=== PATIENT | female | born 2000 | race Caucasian/White ===

== ENCOUNTER 2020-12-16 19:40 | Observation (INO) ==
[2020-12-16 20:09] LABS: Bacteria,Urine Few per hpf (None-Few); Bilirubin,Urine Negative (Negative); Blood,Urine Negative (Negative); Clarity,Urine Turbid (Clear); Color,Urine Light-Yellow (Yellow); Glucose,Urine (UA) Normal (Normal); Ketones,Urine Negative (Negative); Leukocyte Esterase,Urine Negative (Negative); Mucus,Urine Few per lpf (None-Few); Nitrite,Urine Negative (Negative); Protein,Urine Negative (Neg-Trace); RBC,Urine 0-3 per hpf (0-3); Specific Gravity,Urine 1.014 (1.010-1.025); Urobilinogen,Urine Normal (Normal)
[2020-12-16] MEDS ORDERED: Ringers Solution, Lactated 1,000 ML ONE ×2 (20:22→22:50)
[2020-12-16 20:45] LABS: Basophils % 0.3 %; Eosinophils # 0.1 K/mcL (0.0-0.6); Eosinophils % 1.3 %; Hematocrit 29.3 % (35.3-44.9); Hemoglobin 9.9 g/dL (11.5-15.4); Immature Granulocytes % 0.7 % (0-4); Lymphocytes # 2.2 K/mcL (0.6-4.6); Lymphocytes % 21.5 %; Mean Corpuscular HGB Conc 33.8 g/dL (31.6-35.5); Mean Corpuscular Hemoglobin 31.2 pg (28.0-33.3); Mean Corpuscular Volume 92.4 fL (83.0-100.0); Mean Platelet Volume 8.9 fL (9.4-12.4); Monocytes # 0.8 K/mcL (0.0-1.3); Monocytes % 8.2 %; Platelet Count 261 K/mcL (140-400); Red Blood Count 3.17 M/mcL (3.82-4.97); Red Cell Distribution Width 12.1 % (11.5-14.5); White Blood Count 10.3 K/mcL (4.3-11.1)
[2020-12-16 20:56] LABS: Prothrombin Time 11.1 Seconds (9.4-12.1)
[2020-12-16 20:58] LABS: Activated Partial Thrombo Time 25.3 Seconds (26.0-36.0)
[2020-12-16 21:10] LABS: Candida DNA Not Detected (Not Detect); Gardnerella DNA Not Detected (Not Detect); Trichomonas DNA Not Detected (Not Detect)
[2020-12-16] MEDS ORDERED: NIFEdipine Immed Rel 10 MG CAPSULE PO ONE (21:21)
[2020-12-16] MEDS ORDERED: Betamethasone Acet/SodPhos 30 MG/5 ML VIAL IM SCH (21:30)
[2020-12-16] MEDS ORDERED: *HR* Nalbuphine 10 MG/ML AMPUL ONE (22:48)
[2020-12-16] MEDS: *HR* Nalbuphine 10 MG/ML AMPUL IV PRN (22:52)
[2020-12-17] MEDS ORDERED: hydrOXYzine pamoate 25 MG CAPSULE PO PRN (03:15)
[2020-12-17] MEDS: *HR* Nalbuphine 10 MG/ML AMPUL IV PRN (04:32)
[2020-12-17] MEDS: Ringers Solution, Lactated 1,000 ML IVC SCH ×2 (04:34→09:09)
== END 2020-12-17 10:50 | disposition home or self-care (01) ==
LOC: 1NENULAB
PROVIDERS: ADMIT Obstetrics & Gynecology; ATTEND Obstetrics & Gynecology

== ENCOUNTER 2020-12-17 21:24 | Observation (INO) ==
[2020-12-17] MEDS ORDERED: Betamethasone Acet/SodPhos 30 MG/5 ML VIAL IM SCH (21:45)
== END 2020-12-17 22:50 | disposition home or self-care (01) ==
LOC: 1NENULAB
PROVIDERS: ADMIT Advanced Practice Midwife; ATTEND Advanced Practice Midwife

== ENCOUNTER 2021-01-17 10:02 | Inpatient (IN) ==
[2021-01-17] MEDS ORDERED: Ringers Solution, Lactated 1,000 ML IVC ONE (10:47)
[2021-01-17] MEDS ORDERED: Famotidine 20 MG/2 ML VIAL IVP ONE (10:47)
[2021-01-17] MEDS ORDERED: Metoclopramide 10 MG/2 ML VIAL IVP ONE (10:47)
[2021-01-17] MEDS ORDERED: CeFAZolin 2,000 MG/120 ML BAG IVPB ONE (10:47)
[2021-01-17] MEDS ORDERED: Ringers Solution, Lactated 1,000 ML ONE ×2 (10:50→11:16)
[2021-01-17] MEDS ORDERED: Ringers Solution, Lactated 1,000 ML IVC SCH ×2 (11:00→15:38)
[2021-01-17] MEDS ORDERED: Oxytocin 20 units/ LR 1000 mL 20 UNIT/1,000 ML BAG IVC SCH ×2 (11:00→15:38)
[2021-01-17 11:07] LABS: Basophils % 0.5 %; Eosinophils # 0.1 K/mcL (0.0-0.6); Eosinophils % 0.8 %; Hematocrit 32.8 % (35.3-44.9); Hemoglobin 11.1 g/dL (11.5-15.4); Immature Granulocytes % 0.6 % (0-4); Lymphocytes % 23.2 %; Mean Corpuscular HGB Conc 33.8 g/dL (31.6-35.5); Mean Corpuscular Hemoglobin 31.3 pg (28.0-33.3); Mean Corpuscular Volume 92.4 fL (83.0-100.0); Mean Platelet Volume 9.1 fL (9.4-12.4); Monocytes # 0.7 K/mcL (0.0-1.3); Monocytes % 8.7 %; Neutrophils # 5.6 K/mcL (1.6-8.9); Platelet Count 240 K/mcL (140-400); Red Blood Count 3.55 M/mcL (3.82-4.97); Red Cell Distribution Width 12.6 % (11.5-14.5); Segmented Neutrophils % 66.2 %; White Blood Count 8.4 K/mcL (4.3-11.1)
[2021-01-17] MEDS ORDERED: *HR* Morphine Sulfate/PF 10 MG/10 ML AMPUL ONE (11:15)
[2021-01-17] MEDS ORDERED: *HR* Midazolam HCl 2 MG/2 ML VIAL ONE (11:15)
[2021-01-17] MEDS ORDERED: *HR* FentaNYL (PF) 100 MCG/2 ML VIAL ONE ×2 (11:15→13:49)
[2021-01-17] MEDS ORDERED: EPHEDrine 50 MG/ML VIAL ONE (11:15)
[2021-01-17] MEDS ORDERED: Ondansetron 4 MG/2 ML VIAL ONE (11:16)
[2021-01-17 11:20] LABS: Amphetamine Screen,Urine Negative ng/mL (Cutoff=1000); Barbiturate Screen,Urine Negative ng/mL (Cutoff=200); Benzodiazepines Screen,Urine Negative ng/mL (Cutoff=200); Cannabinoid Screen,Urine Negative ng/mL (Cutoff = 50); Cocaine Screen,Urine Negative ng/mL (Cutoff= 300); Opiate Screen,Urine Negative ng/mL (Cutoff=300); Phencyclidine Screen,Urine Negative ng/mL (Cutoff=25)
[2021-01-17] MEDS ORDERED: *HR* Oxytocin 10 UNIT/ML VIAL IM ONE (11:22)
[2021-01-17] MEDS ORDERED: Ketorolac 30 MG/ML VIAL ONE (11:22)
[2021-01-17 11:37] LABS: Influenza A PCR Negative (Negative); Influenza B PCR Negative (Negative); Resp. Syncytial Virus PCR Negative (Negative)
[2021-01-17 11:38] LABS: SARS-CoV-2 by PCR (In House) Negative (Negative)
[2021-01-17] MEDS ORDERED: Acetaminophen IV 1,000 MG/100 ML BAG IVPB ONE (13:54)
[2021-01-17] MEDS ORDERED: Rho Immune Globulin 1,500 UNIT SYRINGE IM ONE (15:38)
[2021-01-17] MEDS ORDERED: Metoclopramide 10 MG/2 ML VIAL IVP PRN (15:38)
[2021-01-17] MEDS ORDERED: Ondansetron 4 MG/2 ML VIAL IVP PRN (15:38)
[2021-01-17] MEDS: Ibuprofen 600 MG TABLET PO SCH (20:00)
[2021-01-17] MEDS ORDERED: *HR* Nalbuphine 10 MG/ML AMPUL IV PRN (20:14)
[2021-01-18 05:56] LABS: Basophils % 0.3 %; Eosinophils % 0.2 %; Immature Granulocytes % 0.6 % (0-4); Lymphocytes # 2.2 K/mcL (0.6-4.6); Lymphocytes % 19.4 %; Mean Corpuscular HGB Conc 34.2 g/dL (31.6-35.5); Mean Corpuscular Volume 93.8 fL (83.0-100.0); Mean Platelet Volume 9.4 fL (9.4-12.4); Monocytes # 1.1 K/mcL (0.0-1.3); Monocytes % 10.2 %; Neutrophils # 7.7 K/mcL (1.6-8.9); Platelet Count 183 K/mcL (140-400); Red Blood Count 2.56 M/mcL (3.82-4.97); Red Cell Distribution Width 12.6 % (11.5-14.5); Segmented Neutrophils % 69.3 %; White Blood Count 11.1 K/mcL (4.3-11.1)
[2021-01-18 06:04] LABS: Hemoglobin 8.2 g/dL (11.5-15.4)
[2021-01-18] MEDS: Ibuprofen 600 MG TABLET PO SCH ×4 (06:31→23:23)
[2021-01-18] MEDS ORDERED: NON-FORMULARY MEDICATION 1 EACH EACH (Ferrous Sulfate 324 MG) PO SCH (09:00)
[2021-01-18] MEDS ORDERED: NON-FORMULARY MEDICATION 1 EACH EACH (Prenatal Caplet 1 TAB) PO SCH (09:00)
[2021-01-18] MEDS: Simethicone 80 MG TAB.CHEW PO PRN ×2 (09:08→15:08)
[2021-01-18] MEDS: Prenatal Vit/FA 1 EACH TABLET PO SCH (09:08)
[2021-01-18] MEDS: *HR* OxyCODONE Immed Rel 5 MG TABLET PO PRN ×3 (09:08→23:23)
[2021-01-19] MEDS: Simethicone 80 MG TAB.CHEW PO PRN ×2 (00:14→08:24)
[2021-01-19 08:05] VITALS: BP 119/98; PULSE 93; TEMP 98; O2SAT 100
[2021-01-19] MEDS: Prenatal Vit/FA 1 EACH TABLET PO SCH (08:24)
[2021-01-19] MEDS: Ibuprofen 600 MG TABLET PO SCH (08:24)
[2021-01-19 12:12] LABS: Basophils % 0.3 %; Eosinophils # 0.1 K/mcL (0.0-0.6); Eosinophils % 0.9 %; Hematocrit 25.2 % (35.3-44.9); Hemoglobin 8.2 g/dL (11.5-15.4); Immature Granulocytes % 0.9 % (0-4); Lymphocytes # 1.9 K/mcL (0.6-4.6); Lymphocytes % 18.5 %; Mean Corpuscular HGB Conc 32.5 g/dL (31.6-35.5); Mean Corpuscular Hemoglobin 30.9 pg (28.0-33.3); Mean Corpuscular Volume 95.1 fL (83.0-100.0); Mean Platelet Volume 8.9 fL (9.4-12.4); Monocytes # 0.8 K/mcL (0.0-1.3); Neutrophils # 7.3 K/mcL (1.6-8.9); Platelet Count 207 K/mcL (140-400); Red Blood Count 2.65 M/mcL (3.82-4.97); Red Cell Distribution Width 13.1 % (11.5-14.5); Segmented Neutrophils % 71.4 %; White Blood Count 10.2 K/mcL (4.3-11.1)
== END 2021-01-19 14:34 | disposition home or self-care (01) | DRG 540 ==
LOC: SAMDAY 10:02 → 1NENULAB 10:05 → 1NENUOBS 16:13
PROVIDERS: ADMIT Student in an Organized Health Care Education/Training Program; ATTEND Student in an Organized Health Care Education/Training Program